=== PATIENT | female | born 1970 | race Caucasian/White ===

== ENCOUNTER 2016-06-21 15:00 | Outpatient (RCR) | payer BC ==
[2016-05-11 16:38] VITALS: BP 140/78
[~2016-06-21 15:00] MED LIST: AMITRIPTYLINE H10 M1 PO; CITALOPRAM40 MG PO; DULOXETINE30 MG PO; KLONOPIN 1MG1 MG PO; PHENERGAN25 M4 RC; TEGRETOL XR100 MG PO
== END 2016-08-15 | disposition home or self-care (01) ==
LOC: PT
DX: M79.7 Fibromyalgia (principal)

== ENCOUNTER → 2016-12-03 | Outpatient (CLI) | payer BC ==
[2016-05-11 16:38] VITALS: BP 140/78
== END ==
LOC: RAD 15:19
DX: M79.671 Pain in right foot (principal); M19.071 Primary osteoarthritis, right ankle and foot

== ENCOUNTER 2018-06-16 20:15 | Emergency (ER) | payer BC ==
[~2018-06-16] VITALS: Ht 162.6 cm; Wt 95.5 kg
[2018-06-16] MEDS ORDERED: PREVACID 24HR15 MG PO (20:42)
[2018-06-16 21:05] LABS: BASO # 0.1 (0.02-0.10); EOS # 0.3 (0.04-0.40); HEMATOCRIT 41.4 % (37.0-47.0); HEMOGLOBIN 13.9 g/dL (12.5-16.0); LYMPH# 3.6 (1.50-4.00); MEAN CELL VOLUME 86 fl (78-100); MEAN CORPUSCULAR HEMOGLOBIN 29 pg (27-31); MEAN CORPUSCULAR HGB CONC 34 g/dL (33-37); MEAN PLATELET VOLUME 10.3 fl (7.4-10.4); MONO # 0.9 (0.20-0.80); NEU # 5.3 (1.40-6.50); PLATELET COUNT 353 K/mm3 (130-400); RED BLOOD COUNT 4.84 M/mm3 (4.10-5.30); RED CELL DISTRIBUTION WIDTH 13.7 % (11.5-14.5); WHITE BLOOD COUNT 10.2 K/mm3 (4.8-10.8)
[2018-06-16 21:19] LABS: ALBUMIN 4.8 g/dL (3.5-5.0); CALCIUM 9.7 mg/dL (8.4-10.2); POTASSIUM 4.4 mmol/L (3.6-5.0); TOTAL BILIRUBIN 0.5 mg/dL (0.2-1.3); TOTAL PROTEIN 7.8 g/dL (6.3-8.2)
[2018-06-16 23:00] LABS: D-DIMER 0.38 mg/L FEU (0.15-0.50)
[2018-06-17 00:51] VITALS: BP 154/71
== END 2018-06-17 00:51 | disposition home or self-care (01) ==
LOC: ED 20:15
PROVIDERS: Nurse Practitioner
DX: M94.0 Chondrocostal junction syndrome [Tietze] (principal); M79.7 Fibromyalgia; Z91.041 Radiographic dye allergy status
CPT/HCPCS: J2270

== ENCOUNTER → 2019-05-18 | Outpatient (CLI) | payer BC ==
[~2019-05-18] MED LIST changes: +PREVACID 24HR15 MG PO
[2019-05-18 14:49] LABS: EOS # 0.3 (0.04-0.40); EOS % 3.3 % (1.0-5.0); HEMATOCRIT 40.2 % (37.0-47.0); HEMOGLOBIN 13.2 g/dL (12.5-16.0); LYMPH# 2.9 (1.50-4.00); MEAN CELL VOLUME 87 fl (78-100); MEAN CORPUSCULAR HEMOGLOBIN 29 pg (27-31); MEAN CORPUSCULAR HGB CONC 33 g/dL (33-37); MEAN PLATELET VOLUME 10.2 fl (7.4-10.4); MONO # 0.7 (0.20-0.80); NEU # 4.3 (1.40-6.50); PLATELET COUNT 325 K/mm3 (130-400); RED BLOOD COUNT 4.61 M/mm3 (4.10-5.30); RED CELL DISTRIBUTION WIDTH 13.6 % (11.5-14.5); WHITE BLOOD COUNT 8.2 K/mm3 (4.8-10.8)
[2019-05-18 14:50] LABS: ALBUMIN 4.5 g/dL (3.5-5.0); POTASSIUM 4.3 mmol/L (3.5-5.1)
[2019-05-18 14:51] LABS: CALCIUM 9.6 mg/dL (8.3-10.5)
[2019-05-18 14:53] LABS: TOTAL PROTEIN 7.6 g/dL (6.4-8.3)
[2019-05-18 14:54] LABS: TOTAL BILIRUBIN 0.6 mg/dL (0.2-1.2)
[2019-05-18 16:00] LABS: ERYTHROCYTE SEDIMENTATION RATE 16 mm/hr (0-20)
== END ==
LOC: LAB 14:13
PROVIDERS: Internal Medicine
DX: Z00.00 Encounter for general adult medical examination without abnormal findings (principal); E55.9 Vitamin D deficiency, unspecified; K90.9 Intestinal malabsorption, unspecified

== ENCOUNTER → 2019-12-15 | Outpatient (CLI) | payer BC | LOC: LAB 12:28 | DX: R05 Cough (principal); R51 Headache; R11.0 Nausea; R06.02 Shortness of breath; M79.10 Myalgia, unspecified site; J02.9 Acute pharyngitis, unspecified; Z20.828 Contact with and (suspected) exposure to other viral communicable diseases ==

== ENCOUNTER → 2019-12-31 | Outpatient (CLI) | payer OTHER | LOC: RAD 12:40 | DX: S92.412A Displaced fracture of proximal phalanx of left great toe, initial encounter for closed fracture (principal); W19.XXXA Unspecified fall, initial encounter ==

== ENCOUNTER → 2020-01-17 | Outpatient (CLI) | payer OTHER | LOC: RAD 15:09 | DX: M79.645 Pain in left finger(s) (principal); W19.XXXA Unspecified fall, initial encounter ==

== ENCOUNTER → 2020-03-13 | Outpatient (CLI) | payer BC | LOC: LAB 11:26 | DX: R30.0 Dysuria (principal) ==

== ENCOUNTER → 2020-09-20 | Outpatient (CLI) | payer BC | LOC: VAS 13:34 | DX: M79.604 Pain in right leg (principal) ==

== ENCOUNTER → 2020-12-22 | Outpatient (CLI) | payer BC ==
[2020-12-22 12:47] LABS: BASO # 0.04 (0.02-0.10); EOS # 0.25 (0.04-0.40); EOS % 3.9 % (1.0-5.0); HEMATOCRIT 41.5 % (37.0-47.0); HEMOGLOBIN 13.8 g/dL (12.5-16.0); LYMPH# 2.57 (1.50-4.00); MEAN CELL VOLUME 86 fl (78-100); MEAN CORPUSCULAR HEMOGLOBIN 29 pg (27-31); MEAN CORPUSCULAR HGB CONC 33 g/dL (33-37); MEAN PLATELET VOLUME 10.2 fl (7.4-10.4); MONO # 0.49 (0.20-0.80); NEU # 3.02 (1.40-6.50); PLATELET COUNT 308 K/mm3 (130-400); RED BLOOD COUNT 4.81 M/mm3 (4.10-5.30); RED CELL DISTRIBUTION WIDTH 12.9 % (11.5-14.5); WHITE BLOOD COUNT 6.4 K/mm3 (4.8-10.8)
[2020-12-22 12:50] LABS: ALBUMIN 4.6 g/dL (3.5-5.0); POTASSIUM 4.4 mmol/L (3.5-5.1)
[2020-12-22 12:54] LABS: TOTAL BILIRUBIN 0.8 mg/dL (0.2-1.2)
[2020-12-28 08:50] LABS: URINE APPEARANCE HAZY; URINE BILIRUBIN NEGATIVE (NEGATIVE); URINE BLOOD 50 ery/uL (NEGATIVE); URINE COLOR YELLOW; URINE GLUCOSE NEGATIVE (NEGATIVE); URINE KETONE NEGATIVE (NEGATIVE); URINE LEUKOCYTE ESTERASE TRACE (NEGATIVE); URINE MUCUS PRESENT (NOT PRESENT); URINE NITRATE NEGATIVE (NEGATIVE); URINE PROTEIN(semi-quant) NEGATIVE (NEGATIVE); URINE UROBILINOGEN NORMAL (NORMAL)
== END ==
LOC: LAB 11:58
PROVIDERS: Internal Medicine
DX: Z00.00 Encounter for general adult medical examination without abnormal findings (principal); K90.9 Intestinal malabsorption, unspecified

== ENCOUNTER → 2021-09-21 | Outpatient (CLI) | payer OTHER ==
[2021-09-21 12:52] LABS: BASO # 0.04 K/mm3 (0.02-0.10); EOS # 0.17 K/mm3 (0.04-0.40); EOS % 2.1 % (1.0-5.0); HEMATOCRIT 42.9 % (37.0-47.0); HEMOGLOBIN 13.9 g/dL (12.5-16.0); LYMPH# 2.45 K/mm3 (1.50-4.00); MEAN CELL VOLUME 88 fl (78-100); MEAN CORPUSCULAR HEMOGLOBIN 28 pg (27-31); MEAN CORPUSCULAR HGB CONC 32 g/dL (33-37); MEAN PLATELET VOLUME 9.9 fl (7.4-10.4); MONO # 0.52 K/mm3 (0.20-0.80); PLATELET COUNT 364 K/mm3 (130-400); RED BLOOD COUNT 4.89 M/mm3 (4.10-5.30); RED CELL DISTRIBUTION WIDTH 13.1 % (11.5-14.5); WHITE BLOOD COUNT 8.3 K/mm3 (4.8-10.8)
[2021-09-21 13:05] LABS: ALBUMIN 4.9 g/dL (3.5-5.0); POTASSIUM 4.2 mmol/L (3.5-5.1)
[2021-09-21 13:07] LABS: CALCIUM 10.4 mg/dL (8.3-10.5)
[2021-09-21 13:08] LABS: TOTAL PROTEIN 8.4 g/dL (6.4-8.3)
[2021-09-21 13:10] LABS: TOTAL BILIRUBIN 0.7 mg/dL (0.2-1.2)
[2021-09-21 13:15] LABS: MAGNESIUM 2.18 mg/dL (1.60-2.60)
[2021-09-21 13:36] LABS: D-DIMER 0.41 mg/L FEU (0.15-0.50)
[2021-09-21 13:53] LABS: ERYTHROCYTE SEDIMENTATION RATE 32 mm/hr (0-30)
[2021-09-22 01:44] LABS: IMMUNOGLOBULIN E, TOTAL 20 IU/mL (0-100)
== END ==
LOC: LAB 12:28
PROVIDERS: Internal Medicine
DX: M79.7 Fibromyalgia (principal); K90.9 Intestinal malabsorption, unspecified; G62.9 Polyneuropathy, unspecified; U07.1 COVID-19; R07.89 Other chest pain; R06.00 Dyspnea, unspecified

== ENCOUNTER → 2021-09-27 | Outpatient (CLI) | payer OTHER | LOC: RAD 09:42 | DX: R06.00 Dyspnea, unspecified (principal) ==

== ENCOUNTER → 2021-10-12 | Outpatient (CLI) | payer OTHER ==
[2021-10-12 14:28] LABS: URINE APPEARANCE CLEAR; URINE BILIRUBIN NEGATIVE (NEGATIVE); URINE BLOOD 250 ery/uL (NEGATIVE); URINE COLOR YELLOW; URINE GLUCOSE NEGATIVE (NEGATIVE); URINE KETONE NEGATIVE (NEGATIVE); URINE LEUKOCYTE ESTERASE NEGATIVE (NEGATIVE); URINE NITRATE NEGATIVE (NEGATIVE); URINE PROTEIN(semi-quant) NEGATIVE (NEGATIVE); URINE UROBILINOGEN NORMAL (NORMAL); URINE WBC 0-1 /hpf (0-3)
== END ==
LOC: LAB 13:45
PROVIDERS: Internal Medicine
DX: N39.0 Urinary tract infection, site not specified (principal)

== ENCOUNTER → 2022-03-06 | Outpatient (CLI) | payer OTHER | LOC: RAD 11:11 | DX: M47.816 Spondylosis without myelopathy or radiculopathy, lumbar region (principal) ==

== ENCOUNTER → 2022-03-29 | Outpatient (CLI) | payer OTHER ==
[2022-04-01 16:00] LABS: ANA SCREEN with REFLEX Negative (Negative)
[2022-04-02 01:53] LABS: ANTI-CYC CITRULLINATED PEPT AB <20.0 CU (0.0-19.9)
== END ==
LOC: LAB 16:39
PROVIDERS: Internal Medicine
DX: U07.1 COVID-19 (principal); M46.1 Sacroiliitis, not elsewhere classified; M79.7 Fibromyalgia; K90.9 Intestinal malabsorption, unspecified; G62.9 Polyneuropathy, unspecified; R06.00 Dyspnea, unspecified; M54.51 Vertebrogenic low back pain; R07.89 Other chest pain; M25.511 Pain in right shoulder

== ENCOUNTER → 2022-04-15 | Outpatient (CLI) | payer OTHER | LOC: RAD 15:14 | DX: M47.816 Spondylosis without myelopathy or radiculopathy, lumbar region (principal); M25.511 Pain in right shoulder ==

== ENCOUNTER → 2022-08-16 | Outpatient (CLI) | payer OTHER ==
[2022-08-16 17:13] LABS: BASO # 0.05 K/mm3 (0.02-0.10); EOS # 0.27 K/mm3 (0.04-0.40); EOS % 2.3 % (1.0-5.0); HEMATOCRIT 44.5 % (37.0-47.0); HEMOGLOBIN 14.5 g/dL (12.5-16.0); LYMPH# 3.44 K/mm3 (1.50-4.00); MEAN CELL VOLUME 87 fl (78-100); MEAN CORPUSCULAR HEMOGLOBIN 29 pg (27-31); MEAN CORPUSCULAR HGB CONC 33 g/dL (33-37); MEAN PLATELET VOLUME 9.8 fl (7.4-10.4); MONO # 0.89 K/mm3 (0.20-0.80); NEU # 6.91 K/mm3 (1.40-6.50); PLATELET COUNT 395 K/mm3 (130-400); RED BLOOD COUNT 5.09 M/mm3 (4.10-5.30); WHITE BLOOD COUNT 11.6 K/mm3 (4.8-10.8)
[2022-08-16 17:24] LABS: ALBUMIN 4.7 g/dL (3.5-5.0)
[2022-08-16 17:26] LABS: CALCIUM 10.2 mg/dL (8.3-10.5)
[2022-08-16 17:27] LABS: TOTAL PROTEIN 8.8 g/dL (6.4-8.3)
[2022-08-16 17:29] LABS: TOTAL BILIRUBIN 0.5 mg/dL (0.2-1.2)
[2022-08-16 18:41] LABS: ERYTHROCYTE SEDIMENTATION RATE 26 mm/hr (0-30)
[2022-08-19 14:04] LABS: SJOGRENS SSA 11 U/mL (0-99); SJOGRENS SSB 8 U/mL (0-99)
== END ==
LOC: LAB 16:49
PROVIDERS: Internal Medicine
DX: M46.1 Sacroiliitis, not elsewhere classified (principal); M25.511 Pain in right shoulder; M79.7 Fibromyalgia; G60.8 Other hereditary and idiopathic neuropathies; M51.36 Other intervertebral disc degeneration, lumbar region; M50.30 Other cervical disc degeneration, unspecified cervical region; F41.8 Other specified anxiety disorders; G47.00 Insomnia, unspecified; H04.123 Dry eye syndrome of bilateral lacrimal glands; E03.9 Hypothyroidism, unspecified; Q79.69 Other Ehlers-Danlos syndromes

== ENCOUNTER 2023-01-14 07:46 | Outpatient (RCR) | payer OTHER | END 2023-02-13 | disposition home or self-care (01) | LOC: PT | DX: Q79.69 Other Ehlers-Danlos syndromes (principal) ==

== ENCOUNTER → 2024-02-02 | Outpatient (CLI) | payer MEDICARE | LOC: LAB 11:40 | DX: J06.9 Acute upper respiratory infection, unspecified (principal); Z20.822 Contact with and (suspected) exposure to COVID-19 ==

== ENCOUNTER → 2024-07-15 | Outpatient (CLI) | payer MEDICARE ==
[2024-07-15 14:58] LABS: BASO # 0.04 K/mm3 (0.02-0.10); EOS # 0.22 K/mm3 (0.04-0.40); EOS % 2.3 % (1.0-5.0); HEMATOCRIT 42.4 % (37.0-47.0); HEMOGLOBIN 13.6 g/dL (12.5-16.0); LYMPH# 3.22 K/mm3 (1.50-4.00); MEAN CELL VOLUME 87 fl (78-100); MEAN CORPUSCULAR HEMOGLOBIN 28 pg (27-31); MEAN CORPUSCULAR HGB CONC 32 g/dL (33-37); MEAN PLATELET VOLUME 9.8 fl (7.4-10.4); MONO # 0.71 K/mm3 (0.20-0.80); NEU # 5.28 K/mm3 (1.40-6.50); PLATELET COUNT 397 K/mm3 (130-400); RED BLOOD COUNT 4.87 M/mm3 (4.10-5.30); RED CELL DISTRIBUTION WIDTH 14.5 % (11.5-14.5); WHITE BLOOD COUNT 9.5 K/mm3 (4.8-10.8)
[2024-07-15 16:16] LABS: ALBUMIN 4.8 g/dL (3.5-5.0)
[2024-07-15 16:17] LABS: CALCIUM 9.9 mg/dL (8.3-10.5)
[2024-07-15 16:18] LABS: TOTAL PROTEIN 8.5 g/dL (6.4-8.3)
[2024-07-15 16:20] LABS: TOTAL BILIRUBIN 0.5 mg/dL (0.2-1.2)
[2024-07-15 16:25] LABS: MAGNESIUM 2.06 mg/dL (1.60-2.60)
== END ==
LOC: LAB 14:38
PROVIDERS: Internal Medicine
DX: M46.1 Sacroiliitis, not elsewhere classified (principal); R73.9 Hyperglycemia, unspecified; E78.2 Mixed hyperlipidemia